=== PATIENT | male | born 1980 ===

== ENCOUNTER 2019-07-05 12:35 | Emergency (ER) | payer SELFPAY ==
[2019-07-05] MEDS ORDERED: fentaNYL 100 MCG/2 ML INJ ONE (12:49)
[2019-07-05] MEDS ORDERED: fentaNYL 100 MCG/2 ML INJ IV ONE ×3 (12:58→14:42)
--- NOTE | 2019-07-05 13:22 | XRay Report ---
LEFT ANKLE 3 VIEWS INDICATION / CLINICAL INFORMATION: Fall from ladder with left ankle pain/deformity. COMPARISON: None available. FINDINGS: BONES / JOINT(S): There are are acute, markedly comminuted fractures of the distal tibial and fibular metadiaphyses. There is lateral displacement of the fracture fragments. There is overriding of the f ibular fracture fragment. The tibial fracture extends into the central aspect of the tibiotalar joint with wide separation of the anterior and posterior fracture components at the joint space on the lat eral view. There is associated subluxation/dislocation at the tibiotalar joint. The tarsal bones appe ar intact. SOFT TISSUES: There is mild to moderate generalized soft tissue swelling. ADDITIONAL FINDINGS: None. Signer Name: Kurt Hensley MD Signed: 07/05/2019 1:18 PM Workstation Name: [id number]
--- NOTE | 2019-07-05 13:51 | XRay Report ---
AP PELVIS INDICATION / CLINICAL INFORMATION: Fall from ladder with pelvic pain. COMPARISON: None available. FINDINGS: BONES / JOINT(S): The hip and SI joint spaces are well-maintained. There is no evidence of fracture o r dislocation. SOFT TISSUES: No significant abnormality. ADDITIONAL FINDINGS: None. Signer Name: Kurt Hensley MD Signed: 07/05/2019 1:46 PM Workstation Name: [id number]
--- NOTE | 2019-07-05 13:52 | XRay Report ---
LUMBOSACRAL SPINE 3 VIEWS INDICATION / CLINICAL INFORMATION: Fall from ladder with low back pain. COMPARISON: None available. FINDINGS: BONES / JOINT(S): There is mild spondylosis. There is no evidence of fracture or subluxation. SOFT TISSUES: No significant abnormality. ADDITIONAL FINDINGS: None. Signer Name: Kurt Hensley MD Signed: 07/05/2019 1:47 PM Workstation Name: [id number]
[2019-07-05] MEDS ORDERED: propofoL 200 MG/20 ML VIAL IV ONE (13:59)
[2019-07-05] MEDS ORDERED: ONDANSETRON 4 MG/2 ML INJ IV ONE (13:59)
[2019-07-05] MEDS ORDERED: SODIUM CHLORIDE 0.9% 1000 ML 1,000 ML ONE (14:05)
--- NOTE | 2019-07-05 14:05 | XRay Report ---
LEFT LOWER LEG 2 VIEWS INDICATION / CLINICAL INFORMATION: Fell from ladder with left lower leg pain. COMPARISON: None available. FINDINGS: BONES / JOINT(S): There are acute, severely comminuted fractures of the distal tibial and fibular met adiaphyses. The findings were described in more detail on the left ankle examination. The proximal ti kulwinder and fibula are intact. No arthritis. SOFT TISSUES: No significant abnormality. ADDITIONAL FINDINGS: None. Signer Name: Kurt Hensley MD Signed: 07/05/2019 2:01 PM Workstation Name: [id number]
--- NOTE | 2019-07-05 14:29 | Emergency Department Report ---
ED General Adult HPI - General Chief complaint: Fall Stated complaint: FALL OFF 10 FT LADDER Time Seen by Provider: 07/05/19 13:21 Source: patient, junior engineer Mode of arrival: Stretcher Limitations: No Limitations - History of Present Illness Initial comments: The patient presents to the emergency department with a chief complaint of left ankle injury and pain. Patient states he fell off ladder approximately 8 to 9 feet tall. Patient denies hitting his head or loss of consciousness. Patient also complains of some pain to the mid tibia as well. -: Sudden Location: lower extremity Radiation: non-radiation Severity scale (0 -10): 10 Quality: crushing, sharp Consistency: constant Improves with: rest Worsens with: movement Associated Symptoms: denies other symptoms Treatments Prior to Arrival: none - Related Data Previous Rx's Medication Instructions Recorded Last Taken Type HYDROcodone/APAP 10-325 [[place] 1 each PO Q6HR PRN #24 tablet 07/05/19 Unknown Rx 10/325] Allergies Allergy/AdvReac Type Severity Reaction Status Date / Time No Known Allergies Allergy Verified 07/05/19 12:51 ED Review of Systems ROS: Stated complaint: FALL OFF 10 FT LADDER Other details as noted in HPI Constitutional: denies: chills, fever Eyes: denies: eye pain, eye discharge, vision change ENT: denies: ear pain, throat pain Respiratory: denies: cough, shortness of breath, wheezing Cardiovascular: denies: chest pain, palpitations Endocrine: no symptoms reported Gastrointestinal: denies: abdominal pain, nausea, diarrhea Genitourinary: denies: urgency, dysuria Musculoskeletal: other (Left ankle pain). denies: back pain, joint swelling, arthralgia Skin: denies: rash, lesions Neurological: denies: headache, weakness, paresthesias Psychiatric: denies: anxiety, depression Hematological/Lymphatic: denies: easy bleeding, easy bruising ED Past Medical Hx - Past Medical History Previous Medical History?: No - Surgical History Past Surgical History?: No - Social History Smoking Status: Never Smoker - Medications Home Medications: Home Medications Medication Instructions Recorded Confirmed Last Taken Type HYDROcodone/APAP 10-325 [[place] 1 each PO Q6HR PRN #24 tablet 07/05/19 Unknown Rx 10/325] ED Physical Exam - General Limitations: No Limitations General appearance: alert, in no apparent distress - Head Head exam: Present: atraumatic, normocephalic - Eye Eye exam: Present: normal appearance, PERRL, EOMI - ENT ENT exam: Present: mucous membranes moist - Neck Neck exam: Present: normal inspection - Respiratory Respiratory exam: Present: normal lung sounds bilaterally. Absent: respiratory distress - Cardiovascular Cardiovascular Exam: Present: regular rate, normal rhythm. Absent: systolic murmur, diastolic murmur, rubs, gallop - GI/Abdominal GI/Abdominal exam: Present: soft, normal bowel sounds - Rectal Rectal exam: Present: deferred - Extremities Exam Extremities exam: Present: other (Obvious deformity to the left ankle; pulses and sensation intact) - Back Exam Back exam: Present: normal inspection - Neurological Exam Neurological exam: Present: alert, oriented X3 - Psychiatric Psychiatric exam: Present: normal affect, normal mood - Skin Skin exam: Present: warm, dry, intact, normal color. Absent: rash ED Course Vital Signs 07/05/19 07/05/19 07/05/19 12:37 12:46 12:52 Temperature 97.9 F Pulse Rate 73 66 67 Pulse Rate [ Intra-Procedure ] Respiratory 27 H 13 16 Rate Respiratory Rate [Intra- Procedure] Blood Pressure 136/76 Blood Pressure [Intra- Procedure] O2 Sat by Pulse 100 100 100 Oximetry O2 Sat by Pulse Oximetry [ Intra-Procedure ] 07/05/19 07/05/19 07/05/19 13:00 13:16 14:48 Temperature Pulse Rate 69 73 Pulse Rate [ 83 Intra-Procedure ] Respiratory 6 L 15 Rate Respiratory 10 L Rate [Intra- Procedure] Blood Pressure 152/103 150/91 Blood Pressure 164/100 [Intra- Procedure] O2 Sat by Pulse 97 100 Oximetry O2 Sat by Pulse 88 Oximetry [ Intra-Procedure ] 07/05/19 07/05/19 07/05/19 14:55 14:58 15:00 Temperature Pulse Rate Pulse Rate [ 51 L 56 L 57 L Intra-Procedure ] Respiratory Rate Respiratory 8 L 17 17 Rate [Intra- Procedure] Blood Pressure Blood Pressure 142/81 138/79 138/87 [Intra- Procedure] O2 Sat by Pulse Oximetry O2 Sat by Pulse 97 94 97 Oximetry [ Intra-Procedure ] 07/05/19 07/05/19 15:05 15:08 Temperature Pulse Rate Pulse Rate [ 59 L 59 L Intra-Procedure ] Respiratory Rate Respiratory 17 16 Rate [Intra- Procedure] Blood Pressure Blood Pressure 140/86 140/86 [Intra- Procedure] O2 Sat by Pulse Oximetry O2 Sat by Pulse 99 99 Oximetry [ Intra-Procedure ] - Moderate Sedation Indications: fracture/dislocation redu ASA Class: I Mallampati Airway Score: 1 Time of Last PO Intake: 08:00 IV Propofol Dose (mgs): 140 Complications: none Interventions: oxygen applied, airway repositioned Patient Tolerated Procedure: well - Orthopedic Fracture Reduction Fracture #1 Consent Obtained: written consent Time Out Performed: Yes Side: left Fracture Reduction Location: other (Ankle mortise) Analgesia: moderate sedation Technique: traction/counter-traction Post Reduction X-rays Demonstrate: anatomical reduction Post-Reduction Neuro Exam: intact Post-Reduction Vascular Exam: intact Splint Applied: Yes Patient Tolerated Procedure: well ED Medical Decision Making - Radiology Data Radiology results: report reviewed - Medical Decision Making Patient was [place]-speaking and an junior engineer was used for obtaining information Spoke with orthopedic surgeon Dr. Tao and the patient can be placed in a splint will follow-up in the office. Critical care attestation.: If time is entered above; I have spent that time in minutes in the direct care of this critically ill patient, excluding procedure time. ED Disposition Clinical Impression: Ankle fracture, left, Dislocation of ankle, left, closed Disposition: DC- TO HOME OR SELFCARE Is pt being admited?: No Does the pt Need Aspirin: No Condition: Fair Instructions: Ankle Fracture (ED), Ankle Dislocation (ED), Moderate Sedation (ED) Additional Instructions: return if worse Prescriptions: HYDROcodone/APAP 10-325 [[place] 10/325] 1 each PO Q6HR PRN #24 tablet PRN Reason: Pain Referrals: KEISHA TAO MD [Staff Physician] - 3-5 Days Time of Disposition: 15:26
--- NOTE | 2019-07-05 15:33 | XRay Report ---
LEFT ANKLE 2 VIEWS INDICATION / CLINICAL INFORMATION: post reduction. COMPARISON: Prereduction exam done earlier today FINDINGS: Fiberglas cast is now in position. Multiple fragments of this very severely comminuted fracture are m ore nearly aligned. Signer Name: Basil Reynoso MD Signed: 07/05/2019 3:29 PM Workstation Name: [id number]
[2019-07-05] MEDS ORDERED: MORPHINE 4 MG/1 ML INJ IV ONE (15:42)
[2019-07-05 16:52] VITALS: BP 164/96
== END 2019-07-05 17:00 | disposition home or self-care (01) ==
LOC: ED 12:35
DX: S82.892A Other fracture of left lower leg, initial encounter for closed fracture (principal); S93.05XA Dislocation of left ankle joint, initial encounter; X58.XXXA Exposure to other specified factors, initial encounter; Y93.89 Activity, other specified; Y92.89 Other specified places as the place of occurrence of the external cause; Y99.8 Other external cause status
CPT/HCPCS: 27840; 72100; 72170; 73590; 73600; 73610; 96374; 96375; 96376; 99284; J2270; J2405; J2704; J3010; J7030